=== PATIENT | male | born 1955 | race Caucasian/White ===

== ENCOUNTER 2017-08-21 21:51 | Emergency (ER) | payer SELFPAY ==
[2017-08-21] MEDS ORDERED: KETOROLAC TROMETHAMINE 60 MG/2 ML SDV IM ONE (22:42)
[2017-08-21] MEDS ORDERED: METHYLPREDNISOLONE ACETATE INJ 80 MG/1 ML VIAL IM PRN (22:42)
[2017-08-21] MEDS ORDERED: BUPIVACAINE HCL 0.5 % INJ/PF 30 ML SDV INJ ONE (22:42)
--- NOTE | 2017-08-21 22:46 | ER Document Report ---
ED Neck/Back Problem - General Chief Complaint: Back Pain Stated Complaint: BACK PAIN Time Seen by Provider: 08/21/17 22:42 Notes: 62 years old male presents today with mid back pain for the last 2-3 days. After working on a floor. The pain is so sharp that he could not sit stand or lay down because of pain. Nonradiating feels like along the paraspinal muscles of the thoracolumbar region. No constitutional symptoms. TRAVEL OUTSIDE OF THE [place] IN LAST 30 DAYS: No - Related Data Allergies/Adverse Reactions: No Known Allergies Allergy (Unverified 08/21/17 22:04) Past Medical History - Social History Smoking Status: Never Smoker Family History: Reviewed & Not Pertinent Review of Systems - Review of Systems Notes: REVIEW OF SYSTEMS: CONSTITUTIONAL : Denies fever, chills, or sweats. Denies recent illness. EENT: Denies eye, ear, throat, or mouth pain or symptoms. Denies nasal or sinus congestion or discharge. Denies throat, tongue, or mouth swelling or difficulty swallowing. CARDIOVASCULAR: Denies chest pain. Denies palpitations or racing or irregular heart beat. Denies ankle edema. RESPIRATORY: Denies cough, cold, or chest congestion. Denies shortness of breath, difficulty breathing, or wheezing. GASTROINTESTINAL: Denies abdominal pain or distention. Denies nausea, vomiting , or diarrhea. Denies blood in vomitus, stools, or per rectum. Denies black, tarry stools. Denies constipation. GENITOURINARY: Denies difficulty urinating, painful urination, burning, frequency, blood in urine, or discharge. MUSCULOSKELETAL: As per history of complain SKIN: Denies rash, lesions or sores. HEMATOLOGIC : Denies easy bruising or bleeding. LYMPHATIC: Denies swollen, enlarged glands. NEUROLOGICAL: Denies confusion or altered mental status. Denies passing out or loss of consciousness. Denies dizziness or lightheadedness. Denies headache. Denies weakness or paralysis or loss of use of either side. Denies problems with gait or speech. Denies sensory loss, numbness, or tingling. Denies seizures. PSYCHIATRIC: Denies anxiety or stress. Denies depression, suicidal ideation, or homicidal ideation. ALL OTHER SYSTEMS REVIEWED AND NEGATIVE. Dictation was performed using [employer] recognition software PHYSICAL EXAMINATION: GENERAL: Well-appearing, well-nourished and in acute distress. HEAD: Atraumatic, normocephalic. EYES: Pupils equal round and reactive to light, extraocular movements intact, sclera anicteric, conjunctiva are normal. ENT: Nares patent, oropharynx clear without exudates. Moist mucous membranes. NECK: Normal range of motion, supple without lymphadenopathy LUNGS: Breath sounds clear to auscultation bilaterally and equal. No wheezes rales or rhonchi. HEART: Regular rate and rhythm without murmurs ABDOMEN: Soft, nontender, nondistended abdomen. No guarding, no rebound. No masses appreciated. Musculoskeletal: examination of the back as a sharp trigger point between T12 and L5 paraspinal muscles. NEUROLOGICAL: Cranial nerves grossly intact. Normal speech, normal gait. Normal sensory, motor exams PSYCH: Normal mood, normal affect. SKIN: Warm, Dry, normal turgor, no rashes or lesions noted. Physical Exam - Vital signs Vitals: Temp Pulse Resp BP Pulse Ox 97.6 F 82 22 H 175/101 H 98 08/21/17 21:57 08/21/17 21:57 08/21/17 21:57 08/21/17 21:57 08/21/17 21:57 Course - Re-evaluation Re-evalutation: 08/21/17 23:14 He was given trigger point injection which took the pain off completely - Vital Signs Vital signs: Temp Pulse Resp BP Pulse Ox 97.6 F 82 22 H 175/101 H 98 08/21/17 21:57 08/21/17 21:57 08/21/17 21:57 08/21/17 21:57 08/21/17 21:57 - Diagnostic Test Radiology results interpreted by me: 08/22/17 01:12 Thoracic spine x-ray did not show any acute fractures or subluxations Procedures - Additional Procedures Trigger point injection under aseptic condition using sterile technique after cleaning with alcohol 60 mg of: Toradol, 80 mg of Depo-Medrol, 10 cc of Additional Procedures: Other - Under aseptic condition using sterile technique after cleaning with alcohol 60 mg of Toradol 80 mg of Depo-Medrol 10 cc of Marcaine was infiltrated along the paraspinal muscles of the T12 and L1 region without any complications. Soon after the injection is done the pain was completely relieved. Discharge - Discharge Clinical Impression: Myalgia and myositis, Mid-back pain, acute Disposition: HOME, SELF-CARE Instructions: Muscle Strain ([facility]) Prescriptions: Baclofen [Baclofen 20 Mg Tablet] 20 mg PO TID #30 tablet Diclofenac Sodium 75 mg PO TID #30 tablet. Hydrocodone/Acetaminophen [[place] 5-325 mg Tablet] 1 tab PO BID #10 tablet
--- NOTE | 2017-08-22 01:18 | RADIOLOGY REPORT (SQ) ---
EXAM DESCRIPTION: T SPINE AP/LAT CLINICAL HISTORY: Mid back pain COMPARISON: None. FINDINGS: 2 views of the thoracic spine. Paraspinous lines are not widened. Vertebral body height preserved. Mild loss of intervertebral disc height with endplate spondylosis. No subluxation. T1 not well identified due to overlying soft tissues. Pedicles identified throughout. No abnormalities of the cardiomediastinal silhouette. No rib fractures definitely identified. No pneumothorax identified. No cortical step-offs identified. IMPRESSION: 1. No acute abnormality of the thoracic spine by plain film criteria. Multilevel degenerative change.
[2017-08-22 01:41] VITALS: BP 146/87
== END 2017-08-22 01:41 | disposition home or self-care (01) ==
LOC: ER 21:51
PROC: 3E0233Z Introduction of Anti-inflammatory into Muscle, Percutaneous Approach (ICD-10-PCS; principal; 2017-08-21)
PROC: 3E023BZ Introduction of Anesthetic Agent into Muscle, Percutaneous Approach (ICD-10-PCS; 2017-08-21)
DX: M79.1 Myalgia (principal); M60.9 Myositis, unspecified; M54.9 Dorsalgia, unspecified
CPT/HCPCS: 99283; 96372; 72070; 20552; J1885; J1040